=== PATIENT | male | born 1970 ===

== ENCOUNTER 2018-09-03 12:38 | Inpatient (IN) | payer OTHER ==
[2018-09-03 13:21] VITALS: BMI 34.7
[2018-09-03] MEDS ORDERED: Multivitamin (MVI) 10 ML, Folic Acid 1 MG, Thiamine 100 MG in Dextrose 5%/0.45% NS 1,00... IV ONE (14:18)
--- NOTE | 2018-09-03 14:22 | ED PDOC ---
HPI: Psych/Substance Abuse Time Seen by Provider: 09/03/18 14:09 Chief Complaint (Nursing): Psychiatric Evaluation Chief Complaint (Provider): Alcohol withdrawal History Per: Patient History/Exam Limitations: no limitations Onset/Duration Of Symptoms: Days (3) Additional Complaint(s): Pt. feels withdrawal and shaking of hands. No alcohol for 3 days. Trying to stop. No drugs. No weakness, abd pain, nausea, vomit, diarrhea. No dizziness. No headaches. Hearing voices saying they will kill him. Past Medical History Reviewed: Nursing Documentation, Vital Signs Vital Signs: Last Vital Signs Temp 98.6 F 09/03/18 13:29 Pulse 104 H 09/03/18 13:29 Resp 20 09/03/18 13:29 BP 137/93 H 09/03/18 13:29 Pulse Ox 104 H 09/03/18 13:29 - Medical History PMH: No Chronic Diseases - Surgical History Surgical History: No Surg Hx - Family History Family History: States: Unknown Family Hx - Living Arrangements Living Arrangements: With Family - Social History Alcohol: > 2 Drinks/Day - Allergies Allergies/Adverse Reactions: Allergies Allergy/AdvReac Type Severity Reaction Status Date / Time No Known Allergies Allergy Verified 09/03/18 13:29 Review of Systems ROS Statement: Except As Marked, All Systems Reviewed And Found Negative Physical Exam - Reviewed Nursing Documentation Reviewed: Yes Vital Signs Reviewed: Yes - Physical Exam Appears: Positive for: Non-toxic, No Acute Distress Head Exam: Positive for: ATRAUMATIC, NORMAL INSPECTION, NORMOCEPHALIC Skin: Positive for: Normal Color, Warm, DRY Eye Exam: Positive for: EOMI, Normal appearance, PERRL ENT: Positive for: Normal ENT Inspection Neck: Positive for: Normal, Painless ROM Cardiovascular/Chest: Positive for: Regular Rate, Rhythm Respiratory: Positive for: CNT, Normal Breath Sounds Gastrointestinal/Abdominal: Positive for: Normal Exam, Soft. Negative for: Tenderness Back: Positive for: Normal Inspection. Negative for: L CVA Tenderness, R CVA Tenderness Extremity: Positive for: Normal ROM. 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 Negative for: Motor/Sensory Deficits, Facial Droop - Laboratory Results Result Diagrams: 09/03/18 14:40 09/03/18 14:40 Interpretation Of Abn Labs: no acute; elevated ast and alt from alcohol - ECG ECG: Positive for: Interpreted By Me, Viewed By Me ECG Rhythm: Positive for: Normal QRS, Normal ST Segment, Sinus Rhythm O2 Sat by Pulse Oximetry: 100 Pulse Ox Interpretation: Normal - Progress ED Course And Treament: 1530: Dr. Edwards to fu on crisis and pt. evaluation. Disposition - Clinical Impression Clinical Impression: Alcohol withdrawal - Patient ED Disposition Is Patient to be Admitted: Transfer of Care - Disposition Disposition: Transfer of Care Disposition Time: 15:40 Condition: STABLE Patient Signed Over To: Mendoza Edwards
[2018-09-03 14:58] LABS: BASO % 0.2 % (0.0-2.0); EOS # 0.1 K/uL (0.0-0.7); EOS % 1.8 % (0.0-4.0); HEMOGLOBIN 13.8 g/dL (12.0-18.0); LYMPH # 0.8 K/uL (1.0-4.3); LYMPH % 11.4 % (20.0-40.0); MEAN CELL VOLUME 90.8 fl (80.0-94.0); MEAN CORPUSCULAR HEMOGLOBIN 29.9 pg (27.0-31.0); MEAN CORPUSCULAR HGB CONC 32.9 g/dL (33.0-37.0); MONO # 0.8 K/uL (0.0-0.8); MONO % 11.1 % (0.0-10.0); NEUT # 5.6 K/uL (1.8-7.0); NEUT % 75.5 % (50.0-75.0); NRBC % 0.1 % (0.0-0.0); RBC 4.62 Mil/uL (4.40-5.90); RED CELL DISTRIBUTION WIDTH 14.3 % (11.5-14.5); WHITE BLOOD COUNT 7.4 K/uL (4.8-10.8)
[2018-09-03 15:04] LABS: ALB/GLOB RATIO 1.3 (1.0-2.1); ALBUMIN 4.5 g/dL (3.5-5.0); ALT/SGPT 158 U/L (21-72); AST/SGOT 154 U/L (17-59); BLOOD UREA NITROGEN 10 mg/dl (9-20); CALCIUM 9.5 mg/dL (8.4-10.2); GFR NON-AFRICAN AMERICAN > 60
[2018-09-03 15:13] LABS: BARBITURATES, UR NEGATIVE (NEGATIVE); BENZODIAZEPINES, UR NEGATIVE (NEGATIVE); OPIATES, UR NEGATIVE (NEGATIVE); PHENCYCLIDINE, UR NEGATIVE (NEGATIVE)
--- NOTE | 2018-09-03 16:13 | ED PDOC ---
- Laboratory Results Result Diagrams: 09/03/18 14:40 09/03/18 14:40 - ECG ECG: Positive for: Interpreted By Me, Viewed By Me ECG Rhythm: Positive for: Normal QRS, Normal ST Segment, Sinus Rhythm Rate: 91 O2 Sat by Pulse Oximetry: 100 - Radiology X-Ray: Interpreted by Me, Viewed By Me X-Ray Interpretation: No Acute Disease Medical Decision Making Medical Decision Making: Care assumed from Dr Castillo. Pending crisis eval. Vital signs are stable. Labs reviewed. In my opinion there are no current acute medical conditions that contraindicate the placement of this patient in a psychiatric unit. 1829 Patient is accepted for psych admission by Dr Hickman. Disposition Counseled Patient/Family Regarding: Studies Performed, Diagnosis - Clinical Impression Clinical Impression: Psychosis, Alcohol abuse - POA Present On Arrival: None - Disposition Disposition: Admitted as In-Patient Disposition Time: 18:30 Condition: STABLE
[2018-09-03 22:40] VITALS: O2SAT 97
[2018-09-03] MEDS ORDERED: Alum-Mag Hydrox-Simethicone Susp (30 mL) PO PRN (23:07)
[2018-09-03] MEDS ORDERED: DiphenhydrAMINE 50 mg/ml Inj IM PRN (23:07)
[2018-09-03] MEDS ORDERED: Magnesium Hydroxide Susp 30 ml UD PO PRN (23:07)
--- NOTE | 2018-09-03 23:31 | PCM.BM ---
<Reese Hanna P - Last Filed: 09/03/18 23:29> Treatment Plan Problems - Problems identified on initial assessmt Auditory Hallucinations Date Initiated: 09/03/18 Time Initiated: 23:29 Assessment reference: NA Status: Active Altered Sleep Patterns Date Initiated: 09/03/18 Time Initiated: 23:30 Assessment reference: NA Status: Active Impaired Communication Date Initiated: 09/03/18 Time Initiated: 23:30 Assessment reference: NA Status: Active Treatment assets and liabiliti Patient Assests: cooperative, ADL independent, physically healthy, negotiates basic needs, cognitively intact Patient Liabilities: live alone, financial problems, poor support system, substance abuse, language/speech - Milieu Protocol Maintain good personal hygiene: daily Encourage regular showers, daily Remind patient to perform daily oral care, daily Assist patient to perform ADL's Conduct patient checks and document Observation sheet: Q15 minutes Maintain personal safety: every shift Educate patient to report safety concerns to staff, every shift Monitor environment for contraband/sharps Medication safety: Monitor for expected outcome, potential side effects: every shift, Assess barriers to learning: every shift, Assess readiness for medication education: every shift <Thuy Sexton - Last Filed: 09/04/18 16:03> Treatment assets and liabiliti Patient Assests: adapts well, cooperative, insightful (Pt. able to identify risks of continued ETOH/substance abuse and benefits of sobriety.), motivated (Pt. expresses motivation for sobriety but is currently ambivalent towards recommendations for rehab referrals. ), resourceful, self-reliant Patient Liabilities: live alone (Pt. reports being homeless for 3 months after losing housing and staying at [facility] for 2 months. ), poor support system (Pt. reports poor family/social supports, explaining that family resides in [facility]. ), relationship conflicts (Pt. reports discord with cousins who reside in and sister in [facility] secondary to ETOH abuse. ), language/speech (pt. is primarily pashto speaking.) Family Contact Family involvement: Famliy/SO not involved Family contact: Patient declines to allow family contact at present - Goals for Treatment Patient goals for treatment: Patient to continue stabilization on 3NP through medication management and group/supportive therapy to address sxs of depression and anxiety and eliminate AH/VH and SI. Patient to be encouraged to attend groups regularly to promote self-awareness, sobriety, and improve insight, compliance, coping skills and self-esteem. Patient to be provided with referral for appropriate level of aftercare to reduce risk of future hospitalizations and ensure safety in the community. Pt. expresses motivation for sobriety but is currently ambivalent towards recommendations for rehab referrals. Discharge/Continuing Care - Education Needs Education Needs: Patient Medication, Patient Diagnosis/Disease Process, Patient Community resources, Patient Aftercare Safety Plan - Discharge Discharge Criteria: Tolerates medication w/o severe side effects, Free of Suicidal thoughts, Free of paranoid thoughts, Free of agitation, Normal sleep pattern, Ability to care for self, No longer exhibiting s/s of withdrawal, Reduction of target symptoms Discharge to:: [facility] - Treatment Team Participation Patient/Family/SO Statement: 09/04/18 16:06 Pt. attended tx team to discuss precursors to hospitalization and tx goals. Pt. AOX4 with depressed affect and fair eye contact. Pt. somewhat disheveled with fair ADLs. Thoughts are clear and connected. Speech: somewhat underproductive. Pt. presents as anxious and depressed as exhibited by feelings of hopelessness/helplessness/guilt, poor energy and motivation and passive suicidal ideations. Pt. denies plan or intent and is able to contract for safety on 3NP. Pt. socially withdrawn and isolative on 3NP. Pt. reports improvement in sxs of withdrawal since admission as exhibited by decrease in restlessness, decrease of AH/VH in both intensity and frequency, absence of tremors. Pt. agreeable to recommended medication regimen. Insight fair. Coping skills/judgment impaired. Pt. to continue stabilization on 3NP through medication management and group/supportive therapy. Pt. to be provided with referral for appropriate level of aftercare. Pt. expresses motivation for sobriety but is currently ambivalent towards recommendations for rehab referrals. Discussed with Family/SO: No Was Patient/Family/SO present at Treatment Team Meeting: Yes <Javad Molina - Last Filed: 09/06/18 14:18> Treatment Plan Problems - Problems identified on initial assessmt Auditory Hallucinations Date Initiated: 09/03/18 Time Initiated: 23:29 Assessment reference: NA Status: Active Altered Sleep Patterns Date Initiated: 09/03/18 Time Initiated: 23:30 Assessment reference: NA Status: Active Impaired Communication Date Initiated: 09/03/18 Time Initiated: 23:30 Assessment reference: NA Status: Active Substance Use Alcohol Date Initiated: 09/05/18 Time Initiated: 12:53 Assessment reference: NA Status: Active - Diagnosis (1) Alcohol abuse Status: Acute Interventions: 09/06/18 14:18 motivational therapy
[2018-09-04 08:39] LABS: T4 7.61 ug/dl (5.5-11.0)
[2018-09-04] MEDS: Multivitamin With Minerals Tab PO SCH (08:49)
--- NOTE | 2018-09-04 11:04 | CARD ---
APPROVED REPORT Date of service: 09/03/2018 EKG Measurement Heart [id number] <Conclusion> Normal sinus rhythm Normal ECG
--- NOTE | 2018-09-04 11:31 | RAD ---
Date of service: 09/03/2018 HISTORY: med clearance COMPARISON: No prior. TECHNIQUE: Chest PA and lateral FINDINGS: LUNGS: No active pulmonary disease. Shallow lung volumes accentuating bronchovascular markings. PLEURA: No significant pleural effusion identified. No pneumothorax apparent. CARDIOVASCULAR: No aortic atherosclerotic calcification present. Shallow lung volumes limits optimal evaluation of heart size. Pulmonary vasculature also accentuated with shallow lung volumes. OSSEOUS STRUCTURES: No significant abnormalities. VISUALIZED UPPER ABDOMEN: Normal. OTHER FINDINGS: None. IMPRESSION: Shallow lung volumes limiting optimal evaluation. Consolidation or effusions or pneumothorax seen. The relative prominence of the heart size and bronchovascular markings may be secondary to crowding from shallow lung volumes.
--- NOTE | 2018-09-04 16:49 | PCM.PSYCH ---
Initial Psychiatric Evaluation - Initial Psychiatric Evaluation Legal Status: Capacity Chief Complaint (in patient's own words): I am depressed and hearing voices History of Present Illness and Precipitating Events: pt is 48 ys old male without previous formal psychiatric treatment, pt has long history of alcohol use, recently lost his job and appartment , became homeless, starting using increasing amount of alcohol, on day of evaluation while intoxicated, pt started having command auditory hallucinations of voices telling him they would kill him and putting him down, he came to ER seeking help on the unit pt presenting with depressed mood and affect. low energy anhedonia, poor sleep and passive suicidal ideation, denied command hallucinations, denied active thoughts of self harm on the unit Current Medications: Active Medications Generic Name Dose Route Start Last Admin Trade Name Freq PRN Reason Stop Dose Admin Acetaminophen 650 mg 09/03/18 23:07 Tylenol 325mg Tab PO Q4 PRN pain level 4-7 Al Hydrox/Mg Hydrox/Simethicone 30 ml 09/03/18 23:07 Maalox Plus 30 Ml PO Q4 PRN Dyspepsia Diphenhydramine HCl 50 mg 09/03/18 23:07 Benadryl IM Q6 PRN Extrapyramidal S/S Unable PO Diphenhydramine HCl 50 mg 09/03/18 23:07 Benadryl PO Q6 PRN Extrapyramidal Symptoms Diphenhydramine HCl 50 mg 09/03/18 23:11 Benadryl PO HS PRN Sleep Escitalopram Oxalate 5 mg 09/04/18 22:00 Lexapro PO HS ROMAN Folic Acid 1 mg 09/04/18 09:00 09/04/18 08:49 Folic Acid PO 1 mg DAILY ROMAN Administration Gabapentin 100 mg 09/04/18 17:00 Neurontin PO TID ROMAN Haloperidol 5 mg 09/03/18 23:07 Haldol PO Q4 PRN Agitation Haloperidol Lactate 5 mg 09/03/18 23:07 Haldol IM Q4 PRN Agitation, Unable to Take PO Lorazepam 1 mg 09/03/18 23:06 09/04/18 13:00 Ativan PO Not Given TID ROMAN Lorazepam 1 mg 09/03/18 23:07 Ativan IM Q6 PRN Anxiety/Agitation,Unable PO Lorazepam 1 mg 09/03/18 23:07 Ativan PO Q6 PRN Anxiety/Agitation Magnesium Hydroxide 30 ml 09/03/18 23:07 Milk Of Magnesia PO HS PRN Constipation Multivitamins/Minerals 1 tab 09/04/18 09:00 09/04/18 08:49 Therapeutic-M Tab PO 1 tab DAILY ROMAN Administration Thiamine HCl 100 mg 09/04/18 09:00 09/04/18 08:48 Vitamin B1 Tab PO 100 mg DAILY ROMAN Administration Trazodone HCl 50 mg 09/04/18 22:00 Desyrel PO HS ROMAN Past Psychiatric History - Past Psychiatric History Explanation of prior treatment: no hx of previous hospitalizations History of ETOH/Drug Use: hx of alcohol use Pertinent Medical Hx (Current Medical&Sleep Prob, Allergies): Allergies Allergy/AdvReac Type Severity Reaction Status Date / Time No Known Allergies Allergy Verified 09/03/18 13:29 Mental Status Examination - Personal Presentation Personal Presentation: Looks stated age - Affect Affect: Constricted, Depressed - Motor Activity Motor Activity: Psychomotor Retardation - Reliability in Providing Information Reliability in Providing Information: Fair - Speech Speech: Relevant - Mood Mood: Depressed, Anxious - Formal Thought Process Formal Thought Process: Circumstantial - Hallucinations/Delusions Hallucinations: Auditory - Obsessions/Compulsions Obsessions: No Compulsions: No - Cognitive Functions Orientation: Person, Place, Situation Sensorium: Alert Abstract Thinking: [place] Judgement: Imparied, as evidence by: Poor judgement - Risk Risk: Withdrawal, Diminished functioning - Strength & Assets Inventory Strength & Assets Inventory: Life experience - Limitations Additional comments: poor social support DSM 5 DX - DSM 5 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
[2018-09-05] MEDS: Multivitamin With Minerals Tab PO SCH (09:04)
--- NOTE | 2018-09-05 12:45 | PCM.PYCHPN ---
Psychiatric Progress Note - Psychiatric Progress Note Patient seen today, length of contact: Pt evaluated, case discussed w/ team, chart reviewed Patient Chief Complaint: Depression Problems Identified/Issues Discussed: Pt continues to report feeling depressed, w/ low energy and motivation. No acute AH/VH/SI/HI. No adverse effects to medications reported. No signs/symptoms of ETOH withdrawal. Medication Change: Yes (Taper Ativan) Medical Record Reviewed: Yes Consults ordered or reviewed: Medicine consult Mental Status Examination - Cognitive Function Orientation: Person, Place, Situation, Time Memory: Intact Attention: WNL Concentration: WNL Association: WNL Fund of Knowledge: [facility] Decription of patient's judgement and insights: Poor I/J - Mood Mood: Depressed, Anxious - Affect Affect: Constricted, Depressed - Speech Speech: Appropriate - Formal Thought Process Formal Thought Process: No Impairment Psychotic Thoughts and Behaviors: Denies AH/VH/paranoia - Suicidal Ideation Suicidal Ideation: No - Homicidal Ideation Homicidal Ideation: No Goal/Treatment Plan - Goal/Treatment Plan Need for Continued Stay: Severe depression anxiety Progress Toward Problem(s) and Goals/Treatment Plan: Alcohol Induced Mood and Psychotic Disorder; Alcohol Use Disorder -Taper Ativan; no current signs/symptoms of ETOH withdrawal -Continue Lexapro, Neurontin and Risperdal -Individual and group therapy -Psychoeducation -Disposition planning
--- NOTE | 2018-09-05 12:53 | PCM.BM ---
Treatment Plan Problems - Problems identified on initial assessmt Auditory Hallucinations Date Initiated: 09/03/18 Time Initiated: 23:29 Assessment reference: NA Status: Active Altered Sleep Patterns Date Initiated: 09/03/18 Time Initiated: 23:30 Assessment reference: NA Status: Active Impaired Communication Date Initiated: 09/03/18 Time Initiated: 23:30 Assessment reference: NA Status: Active Substance Use Alcohol Date Initiated: 09/05/18 Time Initiated: 12:53 Assessment reference: NA Status: Active Treatment assets and liabiliti Patient Assests: adapts well, cooperative, insightful (Pt. able to identify risks of continued ETOH/substance abuse and benefits of sobriety.), motivated (Pt. expresses motivation for sobriety but is currently ambivalent towards recommendations for rehab referrals. ), resourceful, self-reliant Patient Liabilities: live alone (Pt. reports being homeless for 3 months after losing housing and staying at [facility] for 2 months. ), poor support system (Pt. reports poor family/social supports, explaining that family resides in [facility]. ), relationship conflicts (Pt. reports discord with cousins who reside in and sister in [facility] secondary to ETOH abuse. ), language/speech (pt. is primarily indonesian speaking.) - Milieu Protocol Maintain good personal hygiene: daily Encourage regular showers, daily Remind patient to perform daily oral care, daily Assist patient to perform ADL's Conduct patient checks and document Observation sheet: Q15 minutes Maintain personal safety: every shift Educate patient to report safety concerns to staff, every shift Monitor environment for contraband/sharps Medication safety: Monitor for expected outcome, potential side effects: every shift, Assess barriers to learning: every shift, Assess readiness for medication education: every shift Milieu Narrative: Alcohol Induced Mood and Psychotic Disorder; Alcohol Use Disorder -Taper Ativan; no current signs/symptoms of ETOH withdrawal -Continue Lexapro, Neurontin and Risperdal -Individual and group therapy -Psychoeducation -Disposition planning Family Contact Family involvement: Famliy/SO not involved Family contact: Patient declines to allow family contact at present - Goals for Treatment Patient goals for treatment: Patient to continue stabilization on 3NP through medication management and group/supportive therapy to address sxs of depression and anxiety and eliminate AH/VH and SI. Patient to be encouraged to attend groups regularly to promote self-awareness, sobriety, and improve insight, compliance, coping skills and self-esteem. Patient to be provided with referral for appropriate level of aftercare to reduce risk of future hospitalizations and ensure safety in the community. Pt. expresses motivation for sobriety but is currently ambivalent towards recommendations for rehab referrals. Discharge/Continuing Care - Education Needs Education Needs: Patient Medication, Patient Diagnosis/Disease Process, Patient Community resources, Patient Aftercare Safety Plan - Discharge Discharge Criteria: Tolerates medication w/o severe side effects, Free of Suicidal thoughts, Free of paranoid thoughts, Free of agitation, Normal sleep pattern, Ability to care for self, No longer exhibiting s/s of withdrawal, Reduction of target symptoms Discharge to:: Long Term - Treatment Team Participation Patient/Family/SO Statement: Alcohol Induced Mood and Psychotic Disorder; Alcohol Use Disorder -Taper Ativan; no current signs/symptoms of ETOH withdrawal -Continue Lexapro, Neurontin and Risperdal -Individual and group therapy -Psychoeducation -Disposition planning Discussed with Family/SO: No Was Patient/Family/SO present at Treatment Team Meeting: Yes
[2018-09-06] MEDS: Multivitamin With Minerals Tab PO SCH (08:39)
--- NOTE | 2018-09-06 14:35 | PCM.PYCHPN ---
Psychiatric Progress Note - Psychiatric Progress Note Patient seen today, length of contact: Pt evaluated, case discussed w/ team, chart reviewed Patient Chief Complaint: I want to get help with alcohol Problems Identified/Issues Discussed: pt evaluated, continues to be depressed, discussed increasing lexapro, motivational therapy provided in reference to effect of alcohol use on current mental status, discussed referral to outpatient [facility] on discharge , encouraged pt to attend groups pt denied any current suicidal or homicidal ideation, reported clearing off of the auditory hallucinations DSM 5 Symptoms Update: alcohol induced mood disorder depression Medication Change: Yes (increase lexapro) Medical Record Reviewed: Yes Mental Status Examination - Cognitive Function Orientation: Person, Place, Situation, Time Memory: Intact Attention: WNL Concentration: WNL Association: WNL Fund of Knowledge: WNL - Mood Mood: Depressed, Anxious - Affect Affect: Constricted, Depressed - Speech Speech: Appropriate - Formal Thought Process Formal Thought Process: No Impairment - Suicidal Ideation Suicidal Ideation: No - Homicidal Ideation Homicidal Ideation: No Goal/Treatment Plan - Goal/Treatment Plan Need for Continued Stay: Severe depression anxiety Progress Toward Problem(s) and Goals/Treatment Plan: neurontin 100mg tid increase lexapro 10mg qhs risperidone 0.5 mg qjhs motivational group and supportive therapy
[2018-09-07] MEDS: Multivitamin With Minerals Tab PO SCH (08:47)
--- NOTE | 2018-09-07 16:11 | PCM.PYCHPN ---
Psychiatric Progress Note - Psychiatric Progress Note Patient seen today, length of contact: Pt evaluated, case discussed w/ team, chart reviewed Patient Chief Complaint: was depressed because of issues family/country of origin, became depressed drinking several (2-3) 1 pints vodka/gin per day, was thinking of harming self, has decreased support-one cousin reportedly in contact. pt reports less depressed denies /s/s withdrawal. reports continue to have difficulty sleeping. staff report pt is treatment adherent. Problems Identified/Issues Discussed: alteration in mood alteration in coping alteration in communication:primary language other than [place] family circumstances Medical Problems: per chart Diagnostic Results: per psychiatry ' per medicine per nursing per social work per recreational therapy DSM 5 Symptoms Update: depression, insomnia, etoh use, decreased family support mood symptoms improving, remains with insomnia, no s/s etoh w/d Medication Change: No Medical Record Reviewed: Yes Consults ordered or reviewed: pt seen by hospitalist Mental Status Examination - Cognitive Function Orientation: Person, Place, Situation, Time Memory: Intact Attention: WNL Concentration: WNL Association: WNL Fund of Knowledge: WN Decription of patient's judgement and insights: impaired - Mood Mood: Depressed, Anxious Additional comments: reports is improving - Affect Affect: Constricted, Depressed - Speech Speech: Soft - Formal Thought Process Formal Thought Process: No Impairment - Suicidal Ideation Suicidal Ideation: No - Homicidal Ideation Homicidal Ideation: No Goal/Treatment Plan - Goal/Treatment Plan Need for Continued Stay: Severe depression anxiety Progress Toward Problem(s) and Goals/Treatment Plan: inpt milieu adjust meds per clinical status vital signs/clinical assessment per clinical status and per protocol access to prn slovak speaking staff discharge planning in progress ?giant steps?vivitrol ?insurance status Estimated Date of D/C: 09/11/18 - Smoking Cessation Smoking Cessation Initiated: No Reason for not providing: defers
[2018-09-08] MEDS: Multivitamin With Minerals Tab PO SCH (08:44)
[2018-09-08 15:53] VITALS: RESP 19
--- NOTE | 2018-09-08 17:16 | PCM.PYCHPN ---
Psychiatric Progress Note - Psychiatric Progress Note Patient seen today, length of contact: Pt evaluated, case discussed w/ team, chart reviewed Patient Chief Complaint: feeling less depressed, reports no s/s etoh w/d, current reported rx helping without notable side effects. staff report pt has been rx adherent and seen about unit. vital signs have reportedly been stable. was depressed because of issues family/country of origin, became depressed drinking several (2-3) 1 pints vodka/gin per day, was thinking of harming self, has decreased support-one cousin reportedly in contact. pt reports less depressed denies /s/s withdrawal. reports continue to have difficulty sleeping. staff report pt is treatment adherent. Problems Identified/Issues Discussed: alteration in mood alteration in coping alteration in communication:primary language other than [place] family circumstances Medical Problems: per chart Diagnostic Results: per psychiatry ' per medicine per nursing per social work per recreational therapy DSM 5 Symptoms Update: improving mood, free of reported s/s etoh, sleeping improving Medication Change: No Medical Record Reviewed: Yes Consults ordered or reviewed: pt seen by hospitalist Mental Status Examination - Cognitive Function Orientation: Person, Place, Situation, Time Memory: Intact Attention: WNL Concentration: WNL Association: [facility] Fund of Knowledge: [facility] Decription of patient's judgement and insights: impaired - Mood Mood: Depressed, Anxious - Affect Affect: Constricted, Depressed - Speech Speech: Soft - Formal Thought Process Formal Thought Process: No Impairment - Suicidal Ideation Suicidal Ideation: No - Homicidal Ideation Homicidal Ideation: No Goal/Treatment Plan - Goal/Treatment Plan Need for Continued Stay: Severe depression anxiety Progress Toward Problem(s) and Goals/Treatment Plan: inpt milieu adjust meds per clinical status vital signs/clinical assessment per clinical status and per protocol access to prn sinhala speaking staff discharge planning in progress ?giant steps?vivitrol ?insurance status Estimated Date of D/C: 09/11/18 - Smoking Cessation Smoking Cessation Initiated: No Reason for not providing: pt defers
[2018-09-09] MEDS: Multivitamin With Minerals Tab PO SCH (08:47)
[2018-09-09 09:06] VITALS: BP 121/83; PULSE 77; TEMP 96.9
--- NOTE | 2018-09-09 13:37 | PCM.PYCHDC ---
Mental Status Examination - Mental Status Examination Orientation: Person, Place, Situation Memory: Intact Mood: Neutral Affect: Broad Speech: Appropriate Attention: WNL Concentration: WNL Association: [facility] Fund of Knowledge: [facility] Formal Thought Process: No Impairment Description of patient's judgement and insight: partial insight , fair judgment Psychotic Thoughts and Behaviors: pt denied any current perceptual disturbances, non elicited Suicidal Ideation: No Current Homicidal Ideation?: No Discharge Summary - Discharge Note Reason for Hospitalization: pt is 48 ys old male without previous formal psychiatric treatment, pt has long history of alcohol use, recently lost his job and appartment , became homeless, starting using increasing amount of alcohol, on day of evaluation while intoxicated, pt started having command auditory hallucinations of voices telling him they would kill him and putting him down, he came to ER seeking help on the unit pt presenting with depressed mood and affect. low energy anhedonia, poor sleep and passive suicidal ideation, denied command hallucinations, denied active thoughts of self harm on the unit Consultations:: List each consultation separately and include: 1. Reason for request. 2. Findings. 3. Follow-up Summary of Hospital Course include:: 1. Description of specific treatment plan utilized for patients during their course of treatmen. 2. Summarize the time- course for resolution of acute symptoms and/or regressed behaviors. 3. Describe issues identified and worked on during hospitalization. 4. Describe medication utilized. 5. Describe medical problems identified and treated. 6. Reassessment of suicide risk Summary of Hospital Course: pt on admission was started on ativan protocol and monitored for symptoms and signs of alcohol withdrawal pt was started on lexapro 10mg ,for depression motivational therapy was provided in reference to alcohol use pt was compliant with treatment, attended groups, no reported side effects of medications on discharge mental status was stable, pt denied any current suicidal or homicidal ideation, denied perceptual disturbances [facility] abuse Current Visit: Yes Status: Acute - Final Diagnosis (DSM 5) Condition upon Discharge: STABLE DSM 5: alcohol induced mood disorder with depressive features alcohol abuse depression Disposition: HOME/ ROUTINE Prescriptions/Medication Reconciliation: Escitalopram [Lexapro] 10 mg PO HS 30 Days #30 tab Gabapentin [Neurontin] 100 mg PO TID 30 Days #90 cap traZODone [Desyrel] 50 mg PO HS 30 Days #30 tab - Antipsychotic Medications Pt discharged on 2 or more routine antipsychotic medications: No
== END 2018-09-09 15:50 | disposition home or self-care (01) | DRG 772 ==
LOC: H.ER 12:38 → H.ERHOLD 19:06 → H.PSYCH 22:59
PROVIDERS: ADMIT Psychiatry & Neurology Psychiatry; ATTEND Psychiatry & Neurology Psychiatry
PROC: HZ57ZZZ Individual Psychotherapy for Substance Abuse Treatment, Motivational Enhancement (ICD-10-PCS; principal; 2018-09-03)
PROC: HZ59ZZZ Individual Psychotherapy for Substance Abuse Treatment, Supportive (ICD-10-PCS; 2018-09-03)
PROC: GZHZZZZ Group Psychotherapy (ICD-10-PCS; 2018-09-03)
DX: F10.14 Alcohol abuse with alcohol-induced mood disorder (principal); R45.851 Suicidal ideations; F32.9 Major depressive disorder, single episode, unspecified; Y90.0 Blood alcohol level of less than 20 mg/100 ml; G47.00 Insomnia, unspecified; Z59.0 Homelessness; Z56.0 Unemployment, unspecified